=== PATIENT | female | born 1990 | race African-American/Black ===

== ENCOUNTER 2016-10-10 00:53 | Emergency (ER) | payer SELFPAY ==
[~2016-10-10] VITALS: Ht 157.5 cm; Wt 70.1 kg
[2016-10-10 02:29] VITALS: BP 149/105
== END 2016-10-10 02:34 | disposition home or self-care (01) ==
LOC: EME 00:53
DX: S61.412A Laceration without foreign body of left hand, initial encounter (principal); W26.0XXA Contact with knife, initial encounter
CPT/HCPCS: 99281; 99284; S0020

== ENCOUNTER 2017-02-28 17:02 | Emergency (ER) | payer SELFPAY ==
[2017-02-28] MEDS ORDERED: PERCOCET 10/1 TABLET PO (19:16)
== END 2017-02-28 19:34 | disposition home or self-care (01) ==
LOC: EME 17:02 → TRA 17:02 → EME 19:34
DX: S31.813A Puncture wound without foreign body of right buttock, initial encounter (principal); S71.141A Puncture wound with foreign body, right thigh, initial encounter; R19.00 Intra-abdominal and pelvic swelling, mass and lump, unspecified site; Y24.9XXA Unspecified firearm discharge, undetermined intent, initial encounter; Y93.02 Activity, running
CPT/HCPCS: 71010; 71260; 72170; 74177; 99281; 99285; J3010

== ENCOUNTER 2017-03-09 11:40 | Emergency (ER) | payer SELFPAY ==
[~2017-03-09] VITALS: Ht 157.5 cm; Wt 71.0 kg
[~2017-03-09 11:40] MED LIST: PERCOCET 10/1 TABLET PO
[2017-03-09 11:51] VITALS: BP 111/72
[2017-03-09] MEDS ORDERED: ULTRAM50 MG PO (13:14)
== END 2017-03-09 13:24 | disposition home or self-care (01) ==
LOC: EME 11:40
DX: S31.813D Puncture wound without foreign body of right buttock, subsequent encounter (principal); S71.131D Puncture wound without foreign body, right thigh, subsequent encounter; Y24.9XXD Unspecified firearm discharge, undetermined intent, subsequent encounter; N83.8 Other noninflammatory disorders of ovary, fallopian tube and broad ligament
CPT/HCPCS: 99281; 99283